=== PATIENT | male | born 1980 | race African-American/Black ===

== ENCOUNTER 2023-02-25 05:40 | Inpatient (IN) | payer SELFPAY ==
[~2023-02-25] VITALS: Ht 175.3 cm; Wt 68.9 kg
[2023-02-25] MEDS ORDERED: SODIUM CHLORIDE 0.9% 1,000 ML IV ONE (06:30)
[2023-02-25 06:39] LABS: BASOPHILS % 0.5 % (0.0-2.0); EOSINOPHILS % 0.8 % (0.0-5.0); HEMATOCRIT. 35.7 % (42.0-52.0); HEMOGLOBIN. 11.9 g/dL (14.0-18.0); LYMPHOCYTES % 23.7 % (20.0-50.0); MEAN CORPUSCULAR HEMOGLOBIN 28.7 pg (28.0-32.0); MEAN CORPUSCULAR VOLUME 85.9 fL (80.0-94.0); MEAN PLATELET VOLUME 6.8 fl (7.4-10.4); MONOCYTES % 8.2 % (2.0-8.0); NEUTROPHILS % 66.8 % (40.0-76.0); PLATELET 309 x1000/uL (130-400); RED BLOOD CELL COUNT 4.15 mill/uL (4.7-6.1); RED CELL DISTRIBUTION WIDTH 12.6 % (11.6-14.6)
[2023-02-25 06:58] LABS: CHLORIDE 108 mEq/L (98-107)
[2023-02-25] MEDS ORDERED: ASPIRIN 325MG EC TABLET PO ONE (07:45)
[2023-02-25] MEDS ORDERED: FUROSEMIDE 20MG/2ML VIAL IVP ONE (07:45)
[2023-02-25] MEDS ORDERED: MAGNESIUM/ALUMINUM HYDROXIDE/SIMETHICONE 30ML UDC PO PRN (10:45)
[2023-02-25] MEDS ORDERED: DOCUSATE SODIUM 100MG CAPSULE PO PRN (10:45)
[2023-02-25] MEDS ORDERED: ACETAMINOPHEN 325MG TABLET PO PRN ×2 (10:45)
[2023-02-25] MEDS ORDERED: CLONIDINE 0.1MG TABLET PO PRN (10:45)
[2023-02-25] MEDS ORDERED: ONDANSETRON HCL 4MG/2ML INJ IV PRN (10:45)
[2023-02-25] MEDS ORDERED: GUAIFENESIN 200MG/10ML SUGAR FREE UDC PO PRN (10:45)
[2023-02-25] MEDS ORDERED: NA PHOS,M-B/NA PHOS,DI-BA ENEMA 118ML PR PRN (10:45)
[2023-02-25] MEDS ORDERED: IPRATROPIUM/ALBUTEROL 0.5-3(2.5)MG/3ML NEB HHN PRN (10:45)
[2023-02-25] MEDS ORDERED: NITROGLYCERIN 0.4MG TABLET SL SL PRN (11:15)
[2023-02-25] MEDS ORDERED: HYDRALAZINE 20MG/ML VIAL IV PRN (11:15)
[2023-02-25] MEDS ORDERED: LORAZEPAM 2MG/ML CPJ IV PRN (11:15)
[2023-02-25 12:00] VITALS: BP 97/82
[2023-02-25] MEDS ORDERED: ASPIRIN 325MG EC TABLET PO NR (12:00)
[2023-02-25] MEDS ORDERED: ASPIRIN 81MG TABLET PO NR (12:00)
[2023-02-25] MEDS ORDERED: FUROSEMIDE 40MG/4ML VIAL IVP NR (12:00)
[2023-02-25] MEDS ORDERED: AMLODIPINE 5MG TABLET PO NR (12:00)
[2023-02-25] MEDS ORDERED: LORAZEPAM 2MG/ML CPJ IV NR (12:00)
[2023-02-25 12:22] LABS: D-DIMER 2.66 mg/L FEU (<0.50); INR 1.2; PROTHROMBIN TIME 12.5 sec (9.6-11.0)
[2023-02-25 12:38] LABS: HEPATITIS B SURFACE AB 5.8 mIU/mL
[2023-02-25 12:51] LABS: FOLIC ACID (FOLATE) SERUM 13.2 ng/mL (>5.38)
[2023-02-25] MEDS ORDERED: CEFTRIAXONE 1GM PREMIX 50 ML IV SCH (13:00)
[2023-02-25] MEDS: IPRATROPIUM/ALBUTEROL 0.5-3(2.5)MG/3ML NEB HHN SCH ×3 (13:29→20:59)
[2023-02-25] MEDS: BUDESONIDE 0.5MG/2ML NEB HHN SCH (13:29)
[2023-02-25] MEDS: PANTOPRAZOLE 40MG DR TABLET PO SCH (14:03)
[2023-02-25] MEDS: LOSARTAN POTASSIUM 25 MG TABLET PO SCH ×2 (14:15→21:38)
[2023-02-25 15:52] VITALS: BP 137/102
[2023-02-25 16:00] VITALS: BP 110/78
[2023-02-25] MEDS: AMLODIPINE 2.5MG TABLET PO SCH (17:00)
[2023-02-25] MEDS ORDERED: SODIUM CHLORIDE 0.45% 1,000 ML IV SCH (18:30)
[2023-02-25 20:00] VITALS: BP 127/76
[2023-02-25] MEDS: ENOXAPARIN 40MG/0.4ML SYR SUBCUT SCH (21:38)
[2023-02-26] VITALS: BP 117/87
[2023-02-26] MEDS ORDERED: IOHEXOL-350 100 ML BOTTLE ONE (01:04)
[2023-02-26] MEDS: IPRATROPIUM/ALBUTEROL 0.5-3(2.5)MG/3ML NEB HHN SCH ×4 (01:10→20:22)
[2023-02-26] MEDS: CEFTRIAXONE 1GM PREMIX 50 ML IV SCH (06:31)
[2023-02-26] MEDS: PANTOPRAZOLE 40MG DR TABLET PO SCH (06:31)
[2023-02-26 07:25] LABS: BASOPHILS % 0.6 % (0.0-2.0); EOSINOPHILS % 1.2 % (0.0-5.0); HEMATOCRIT. 39.6 % (42.0-52.0); HEMOGLOBIN. 13.6 g/dL (14.0-18.0); LYMPHOCYTES % 20.3 % (20.0-50.0); MEAN CORPUSCULAR HEMOGLOBIN 29.1 pg (28.0-32.0); MEAN CORPUSCULAR VOLUME 84.7 fL (80.0-94.0); MEAN PLATELET VOLUME 7.2 fl (7.4-10.4); MONOCYTES % 8.6 % (2.0-8.0); NEUTROPHILS % 69.3 % (40.0-76.0); PLATELET 343 x1000/uL (130-400); RED BLOOD CELL COUNT 4.68 mill/uL (4.7-6.1); RED CELL DISTRIBUTION WIDTH 13.3 % (11.6-14.6)
[2023-02-26 07:29] LABS: CHLORIDE 107 mEq/L (98-107)
[2023-02-26 08:00] VITALS: BP 147/75
[2023-02-26 08:02] LABS: CREATINE KINASE 226 IU/L (39-308); CREATINE KINASE MB FRACTION 1.6 ng/mL (0.5-3.6)
[2023-02-26] MEDS: LOSARTAN POTASSIUM 25 MG TABLET PO SCH ×3 (09:00→20:29)
[2023-02-26] MEDS: AMLODIPINE 2.5MG TABLET PO SCH ×3 (09:00→15:35)
[2023-02-26 12:00] VITALS: BP 121/80
[2023-02-26] MEDS: ENOXAPARIN 40MG/0.4ML SYR SUBCUT SCH ×2 (12:00→12:37)
[2023-02-26] MEDS: CYANOCOBALAMIN 1000MCG/ML VIAL IM SCH (12:34)
[2023-02-26] MEDS: AZITHROMYCIN 500 MG in DEXT 5% WATER 250 ML IV SCH (12:41)
[2023-02-26] MEDS ORDERED: HALOPERIDOL LACTATE 5MG/ML VIAL IM PRN (15:15)
[2023-02-26 16:00] VITALS: BP 127/79
[2023-02-26 16:31] LABS: CREATINE KINASE MB FRACTION 1.4 ng/mL (0.5-3.6)
[2023-02-26 20:06] VITALS: BP 135/73
[2023-02-26 20:36] LABS: CREATINE KINASE MB FRACTION 1.4 ng/mL (0.5-3.6)
[2023-02-26] MEDS: BUDESONIDE 0.5MG/2ML NEB HHN SCH ×2 (22:21)
[2023-02-27] MEDS: IPRATROPIUM/ALBUTEROL 0.5-3(2.5)MG/3ML NEB HHN SCH ×2 (01:18→05:01)
[2023-02-27] MEDS: CEFTRIAXONE 1GM PREMIX 50 ML IV SCH (02:34)
[2023-02-27] MEDS: PANTOPRAZOLE 40MG DR TABLET PO SCH (07:40)
[2023-02-27] MEDS: LOSARTAN POTASSIUM 25 MG TABLET PO SCH (08:36)
[2023-02-27] MEDS: CYANOCOBALAMIN 1000MCG/ML VIAL IM SCH (08:36)
[2023-02-27] MEDS ORDERED: AMLODIPINE 5MG TABLET PO SCH (09:00)
[2023-02-27] MEDS: AZITHROMYCIN 500 MG in DEXT 5% WATER 250 ML IV SCH (10:00)
[2023-02-27] MEDS: ENOXAPARIN 40MG/0.4ML SYR SUBCUT SCH (12:00)
[2023-02-27] MEDS ORDERED: FAMOTIDINE 20MG TABLET PO SCH (17:40)
== END 2023-02-27 14:36 | disposition home or self-care (01) | DRG 133 ==
LOC: ER 05:40 → 7WST 07:45 → ENRESERV 11:41
PROVIDERS: ADMIT Internal Medicine; ATTEND Internal Medicine
DX: J96.01 Acute respiratory failure with hypoxia (principal); E87.20 Acidosis, unspecified; E46 Unspecified protein-calorie malnutrition; J45.901 Unspecified asthma with (acute) exacerbation; I50.9 Heart failure, unspecified; I11.0 Hypertensive heart disease with heart failure; F14.10 Cocaine abuse, uncomplicated; D64.9 Anemia, unspecified; Z20.822 Contact with and (suspected) exposure to COVID-19; Z91.199 Patient's noncompliance with other medical treatment and regimen due to unspecified reason; F41.9 Anxiety disorder, unspecified; D72.829 Elevated white blood cell count, unspecified; Z68.22 Body mass index [BMI] 22.0-22.9, adult
CPT/HCPCS: 36415; 71045; 71275; 80053; 80061; 82550; 82553; 82607; 82728; 82746; 83540; 83550; 83605; 83880; 84443; 84484; 85025; 85379; 86706; 87426; 87536; 87804; 93005; 93306; 93970; 94640; 99285; J0456; J0696; J1650; J1940; J2060; J3420; J7030; J7060; J7626; Q9967

== ENCOUNTER 2023-02-28 14:31 | Emergency (ER) | payer SELFPAY ==
[~2023-02-28] VITALS: Ht 172.7 cm; Wt 75.0 kg
[2023-02-28 14:39] VITALS: BP 147/106
[2023-02-28 16:13] LABS: BASOPHILS % 0.3 % (0.0-2.0); EOSINOPHILS % 0.1 % (0.0-5.0); HEMATOCRIT. 46.9 % (42.0-52.0); HEMOGLOBIN. 15.4 g/dL (14.0-18.0); LYMPHOCYTES % 9.2 % (20.0-50.0); MONOCYTES % 3.8 % (2.0-8.0); NEUTROPHILS % 86.6 % (40.0-76.0); RED BLOOD CELL COUNT 5.33 mill/uL (4.7-6.1); RED CELL DISTRIBUTION WIDTH 13.5 % (11.6-14.6)
[2023-02-28 16:24] LABS: MEAN PLATELET VOLUME 7.3 fl (7.4-10.4)
[2023-02-28 16:25] LABS: CHLORIDE 103 mEq/L (98-107)
[2023-02-28 17:17] LABS: PLATELET 410 x1000/uL (130-400)
== END 2023-02-28 16:16 | disposition left against medical advice (07) ==
LOC: ER 14:31
DX: Z53.21 Procedure and treatment not carried out due to patient leaving prior to being seen by health care provider (principal)
CPT/HCPCS: 36415; 80053; 85025